=== PATIENT | female | born 1965 | race Caucasian/White ===

== ENCOUNTER 2021-02-24 19:39 | Emergency (ER) | payer OTHER, MEDICAID ==
[~2021-02-24] VITALS: Ht 165.1 cm; Wt 86.2 kg
[2021-02-24] MEDS ORDERED: HYDROXYZINE HCL10 M2 PO (20:06)
[2021-02-24] MEDS ORDERED: BUNAVAIL 4.2-01 EACH PO (20:07)
[2021-02-24] MEDS ORDERED: LISINOPRIL20 MG PO (20:08)
[2021-02-24] MEDS ORDERED: DESYREL150 MG PO (20:08)
[2021-02-24] MEDS ORDERED: BRINTELLIX20 MG PO (20:08)
[2021-02-24] MEDS ORDERED: ONDANSETRON HCL4 M3 PO (20:09)
[2021-02-24] MEDS ORDERED: MELOXICAM7.5 MG PO (20:09)
[2021-02-24] MEDS ORDERED: PRAZOSIN HCL5 MG PO (20:09)
[2021-02-24] MEDS ORDERED: PROPRANOLOL 20M20 M1 PO (20:10)
[2021-02-24] MEDS ORDERED: PREGABALIN100 MG PO (20:10)
[2021-02-24] MEDS ORDERED: ABILIFY 5 MG TAB5 M1 PO (20:11)
[2021-02-24] MEDS ORDERED: LIPITOR40 MG PO (20:11)
[2021-02-24] MEDS ORDERED: JANUMET 50-1,01 EACH PO (20:12)
[2021-02-24] MEDS ORDERED: FLEXERIL PO (20:12)
[2021-02-24] MEDS ORDERED: FENOFIBRATE150 MG PO (20:12)
[2021-02-24] MEDS ORDERED: LEVO-T100 MCG PO (20:13)
[2021-02-24 20:25] LABS: ABSOLUTE BASOPHILS 0.1 thou/uL (0.0-0.2); ABSOLUTE EOSINOPHILS 0.2 thou/uL (0.0-0.7); ABSOLUTE LYMPHOCYTES 2.3 thou/uL (0.8-5.3); ABSOLUTE MONOCYTES 0.6 thou/uL (0.0-1.2); ABSOLUTE NEUTROPHILS 4.7 thou/uL (1.6-8.1); BASOPHILS 1.2 %; EOSINOPHILS 2.7 %; HEMATOCRIT 30.1 % (37.0-47.0); HEMOGLOBIN 9.8 gm/dL (12.0-15.0); LYMPHOCYTES 29.4 %; MCH 27.9 pg (26.0-34.0); MCHC 32.4 g/dL (28.0-37.0); MONOCYTES 7.1 %; MPV 8.6 fl. (7.2-11.1); NUCLEATED RBCS 0 /100WBC; PLATELET COUNT* 232 thou/uL (150-400); POLYS 59.6 %; RDW-CV 14.2 % (10.5-14.5); WBC 7.9 thou/uL (4.0-11.0)
[2021-02-24 20:35] LABS: CALCIUM 8.9 mg/dL (8.5-10.1); CREATININE 1.8 mg/dL (0.6-1.3); POTASSIUM 4.3 mmol/L (3.5-5.1)
[2021-02-24 20:38] LABS: APTT 23.6 Seconds (25.0-31.3); PROTIME 10.8 Seconds (9.20-11.50)
[2021-02-24 20:45] LABS: ALBUMIN 3.4 g/dL (3.4-5.0); TOTAL BILIRUBIN 0.2 mg/dL (<0.1-1.0); TOTAL PROTEIN 6.9 g/dL (6.4-8.2)
[2021-02-24 21:28] VITALS: BP 109/66
--- NOTE | 2021-02-25 08:32 | EKG ---
[place] [address] ELECTROCARDIOGRAM REPORT Name: HOLLY MAC Room: [facility]#: [id number] Admission: 02/24/21 Attend Phys: Discharge: 02/24/21 Date of : 65 Date of Service: 02/24/212005 Report #: [id number] THIS REPORT FOR: //name// [facility] ED Test Date: 2021-02-24 Test Time: 20:06:32 Pat Name: HOLLY MAC Department: Room: Gender: Bolt Header: PHAM : 1965 Requested By: Yusuf Nino Order Number: [id number] MD: Gerry East Measurements Intervals Browns Rate: 89 P: 65 RI: 123 QRS: 73 QRSD: 91 T: 56 QT: 345 QTc: 420 Interpretive Statements Sinus rhythm Borderline T abnormalities, anterior leads No previous ECG available for comparison Electronically Signed On 02-25-2021 8:32:04 CDT by Gerry East [email or web address] <ELECTRONICALLY SIGNED> By: Gerry East MD, [facility] 02/25/2132 05 05 Gerry East MD, FACC /EPI
== END 2021-02-24 21:29 | disposition home or self-care (01) ==
LOC: M.ERS 19:39
PROVIDERS: Family Medicine
DX: R42 Dizziness and giddiness (principal); J44.9 Chronic obstructive pulmonary disease, unspecified; M79.7 Fibromyalgia; I10 Essential (primary) hypertension; Z90.49 Acquired absence of other specified parts of digestive tract; Z85.42 Personal history of malignant neoplasm of other parts of uterus; Z88.5 Allergy status to narcotic agent; Z88.0 Allergy status to penicillin; Z88.6 Allergy status to analgesic agent; Z88.8 Allergy status to other drugs, medicaments and biological substances